=== PATIENT | male | born 1990 | race Two or more races ===

== ENCOUNTER 2017-04-04 07:05 | Emergency (ER) | payer SELFPAY ==
[~2017-04-04] VITALS: Ht 160 cm; Wt 61.5 kg
[2017-04-04] VITALS (8 sets, daily range): BP systolic 101–147; BP diastolic 61–80; PULSE 59–74; RESP 18–20; TEMP 97.9; O2SAT 97–99
[2017-04-04] MEDS ORDERED: ONDANSETRON HCL 4 MG/2 ML VIAL ONE (07:26)
[2017-04-04] MEDS ORDERED: ONDANSETRON HCL 4 MG/2 ML VIAL IV PUSH ONE (07:30)
--- NOTE | 2017-04-04 07:35 | PD ---
HPI Chief Complaint: Dizziness Time Seen by Provider: 07:26 Travel History International Travel<30 days: No Contact w/Intl Traveler<30days: No Traveled to known affect area: No History of Present Illness HPI 26-year-old male came to the emergency room with history of intense dizziness that started all of a sudden while he was at work this morning. Patient seems to be in severe discomfort and has vomited couple times prior to me going to see him. Patient says he has never had this kind of symptom before. He cannot recall of any predisposing factors slight going to a dentist or any roller coaster ride or any extreme movement in recent past. He prefers to keep his eyes shut since he has intense spinning sensation. He is clutching onto the edge of the stretcher. Patient did not fall or hit his head. His colleague from his work is here with him. Patient claims to be a healthy person otherwise. Vital signs are relatively stable. PFSH Past Medical History Narrative Medical List of his past medical, surgical, social and family history was reviewed from the nursing note. Medical History: Denies Significant Hx Diminished Hearing: No Tetanus Vaccination: Unknown Influenza Vaccination: No ?: Not Past Surgical History Surgical History: No Previous Surgery Social History Alcohol Use: No Tobacco Use: No Substance Use: No Allergies-Medications (Allergen,Severity, Reaction): Coded Allergies: No Known Allergies (Unverified , 04/04/17) Comments No known drug allergies. Reported Meds & Prescriptions Reported Meds & Active Scripts Active Xanax (Alprazolam) 0.25 Mg Tab 0.25 Mg PO Q6H PRN Zofran Odt (Ondansetron Odt) 4 Mg Tab 4 Mg SL Q6HR PRN Meclizine (Meclizine HCl) 25 Mg Tab 25 Mg PO TID PRN Narrative Medication List of his home medications reviewed from the nursing note. Review of Systems Except as stated in HPI: all other systems reviewed are Neg Physical Exam Narrative GENERAL: Awake, alert, significant distress SKIN: Focused skin assessment warm/dry. HEAD: Atraumatic. Normocephalic. EYES: Pupils equal and round. No scleral icterus. No injection or drainage. Difficult to assess nystagmus since patient is clenching his eyes shut ENT: No nasal bleeding or discharge. Mucous membranes pink and moist. NECK: Trachea midline. No JVD. CARDIOVASCULAR: Regular rate and rhythm. No murmur appreciated. RESPIRATORY: No accessory muscle use. Clear to auscultation. Breath sounds equal bilaterally. GASTROINTESTINAL: Abdomen soft, non-tender, nondistended. Hepatic and splenic margins not palpable. MUSCULOSKELETAL: No obvious deformities. No clubbing. No cyanosis. No edema. NEUROLOGICAL: Awake and alert. No obvious cranial nerve deficits. Motor grossly within normal limits. Normal speech. PSYCHIATRIC: Appropriate mood and affect; insight and judgment normal. Data Data Last Documented VS Vital Signs Date Time Temp Pulse Resp B/P Pulse Ox O2 Delivery O2 Flow Rate FiO2 04/04/17 14:08 61 18 108/67 98 Room Air 04/04/17 07:09 97.9 Orders Ondansetron Inj (Zofran Inj) (04/04/17 07:26) Ondansetron Inj (Zofran Inj) (04/04/17 07:30) Complete Blood Count With Diff (04/04/17 08:11) Basic Metabolic Panel (Bmp) (04/04/17 08:11) Ct Brain W/O Iv Contrast(Rout) (04/04/17 08:11) Ecg Monitoring (04/04/17 08:11) Iv Access Insert/Monitor (04/04/17 08:11) Oximetry (04/04/17 08:11) Ondansetron Inj (Zofran Inj) (04/04/17 08:15) Sodium Chloride 0.9% Flush (Ns Flush) (04/04/17 08:15) Lorazepam Inj (Ativan Inj) (04/04/17 08:15) Meclizine (Antivert) (04/04/17 08:15) Sodium Chlor 0.9% 1000 Ml Inj (Ns 1000 M (04/04/17 08:15) Mra Brain W/O Contrast (Cow) (04/04/17 ) Mri Brain W/O Contrast (04/04/17 ) Labs Laboratory Tests Test 04/04/17 08:15 White Blood Count 7.8 TH/MM3 Red Blood Count 5.66 MIL/MM3 Hemoglobin 16.7 GM/DL Hematocrit 50.0 % Mean Corpuscular Volume 88.3 FL Mean Corpuscular Hemoglobin 29.5 PG Mean Corpuscular Hemoglobin 33.4 % Concent Red Cell Distribution Width 13.3 % Platelet Count 237 TH/MM3 Mean Platelet Volume 9.6 FL Neutrophils (%) (Auto) 62.2 % Lymphocytes (%) (Auto) 25.9 % Monocytes (%) (Auto) 7.4 % Eosinophils (%) (Auto) 3.5 % Basophils (%) (Auto) 1.0 % Neutrophils # (Auto) 4.9 TH/MM3 Lymphocytes # (Auto) 2.0 TH/MM3 Monocytes # (Auto) 0.6 TH/MM3 Eosinophils # (Auto) 0.3 TH/MM3 Basophils # (Auto) 0.1 TH/MM3 CBC Comment DIFF FINAL Differential Comment Sodium Level 139 MEQ/L Potassium Level 3.7 MEQ/L Chloride Level 104 MEQ/L Carbon Dioxide Level 27.0 MEQ/L Anion Gap 8 MEQ/L Blood Urea Nitrogen 18 MG/DL Creatinine 0.98 MG/DL Estimat Glomerular Filtration 93 ML/MIN Rate Random Glucose 90 MG/DL Calcium Level 9.2 MG/DL MDM Medical Decision Making Medical Screen Exam Complete: Yes Emergency Medical Condition: Yes Medical Record Reviewed: Yes Differential Diagnosis BPV, CVA, intracranial tumor, intracranial bleed Narrative Course 11:01 AM Alyson-Hallpike maneuver was attempted but because patient was trying to keep his eye shut it was difficult to see nystagmus. I still went ahead and tried to do the Padma maneuver with no relief. Patient was given Zofran 2 along with meclizine and IV Ativan. Blood test results are back and within normal limits. Head CT is questioning a small hemorrhage in the left caudate nucleus. Radiologist is recommending an MRI. MRI has been ordered. Waiting for the test to be done and resulted. I reassessed the patient a little bit ago and he seems to have calmed down a little bit. He says he feels little better. The test results and the plan has been relayed to him. 1:14 PM MRI and MRA are within normal limit. Patient was told about the test result. He is currently being ambulated by the medical student. If he ambulates well he'll be discharged home. 1:49 PM patient ambulated and said he was still dizzy but much better than when he first came in. He is comfortable going home. He is calling his friend to take him home. Patient will be discharged home on meclizine. Procedures EKG Prior to Arrival: No Diagnosis Primary Impression: BPV (benign positional vertigo) Qualified Code: H81.10 - BPV (benign positional vertigo), unspecified laterality Admitting Information Admitting Physician Requests: Observation Referrals: Primary Care Physician 2 days Additional Instructions: Please return to the ER if the condition worsens or any other new concerns. Otherwise follow-up with your primary care in couple days. Take the medication as per the prescription direction. He should not be driving until symptoms completely subsided. Med/Other Pt SpecificInfo: Prescription(s) given Scripts Alprazolam (Xanax)0.25 Mg Tab0.25 Mg PO Q6H PRN (ANXIETY) #4 TAB Ref 0 Prov:Barry Trejo MD 04/04/17 Ondansetron Odt (Zofran Odt)4 Mg Tab4 Mg SL Q6HR PRN (Nausea/Vomiting) #10 TAB Ref 0 Prov:Barry Trejo MD 04/04/17 Meclizine 25 Mg Tab25 Mg PO TID PRN (VERTIGO) #21 TAB Ref 0 Prov:Barry Trejo MD 04/04/17 Disposition: 01 DISCHARGE HOME Condition: Stable Barry Trejo MD Apr 04, 2017 07:35
[2017-04-04] MEDS ORDERED: ONDANSETRON HCL 4 MG/2 ML VIAL IVP ONE (08:15)
[2017-04-04] MEDS ORDERED: MECLIZINE HCL 25 MG TAB PO ONE (08:15)
[2017-04-04] MEDS ORDERED: SODIUM CHLOR 0.9% 1000 ML INJ 1,000 ML IV ONE (08:15)
[2017-04-04] MEDS ORDERED: LORazepam 2 MG/ML VIAL IV PUSH ONE (08:15)
[2017-04-04] MEDS ORDERED: SODIUM CHLORIDE 0.9% FLUSH 10 ML FLUSH IVF PRN (08:15)
[2017-04-04 08:43] LABS: AUTOMATED NEUTROPHIL # 4.9 TH/MM3 (1.8-7.7); BASOPHIL # 0.1 TH/MM3 (0-0.2); EOSINOPHIL # 0.3 TH/MM3 (0-0.4); EOSINOPHIL % 3.5 % (0.0-4.0); HEMO FLAGS DIFF FINAL; LYMPH % 25.9 % (9.0-44.0); MEAN CELL VOLUME 88.3 FL (80.0-100.0); MEAN CORPUSCULAR HEMOGLOBIN 29.5 PG (27.0-34.0); MEAN CORPUSCULAR HGB CONC 33.4 % (32.0-36.0); MONO % 7.4 % (0.0-8.0); NEUT % 62.2 % (16.0-70.0); PLATELET COUNT 237 TH/MM3 (150-450); RED BLOOD COUNT 5.66 MIL/MM3 (4.50-5.90); RED CELL DISTRIBUTION WIDTH 13.3 % (11.6-17.2); WHITE BLOOD COUNT 7.8 TH/MM3 (4.0-11.0)
[2017-04-04 09:00] LABS: POTASSIUM 3.7 MEQ/L (3.5-5.1)
--- NOTE | 2017-04-04 09:18 | RADRPT ---
EXAM DATE/TIME: 04/04/2017 08:40 [facility] COMPARISON: No previous studies available for comparison. INDICATIONS : Dizziness, nausea and vomiting since 6 am today. RADIATION DOSE: 56.38 CTDIvol (mGy) MEDICAL HISTORY : None SURGICAL HISTORY : None. ENCOUNTER: Initial ACUITY: 1 day PAIN SCALE: 3/10 LOCATION: TECHNIQUE: Multiple contiguous axial images were obtained of the head. Using automated exposure control and adj ustment of the mA and/or kV according to patient size, radiation dose was kept as low as reasonably a chievable to obtain optimal diagnostic quality images. FINDINGS: There is a faint focus of high density within the expected region of the left basal ganglia which valenzuela ses the possibility of tiny acute intraparenchymal hemorrhage. MRI of the brain is recommended for fu rther evaluation of this questionable finding. No extra-axial bleed is noted. The ventricles, sulci a nd cisterns are unremarkable. No midline shift or mass effect is noted. CONCLUSION: Faint focus of high density within the expected region of the left basal ganglia whic h raises the possibility of tiny acute intraparenchymal hemorrhage. MRI of the brain is recommended f or further evaluation of this questionable finding. Justino oRmo MD on April 04, 2017 at 9:11 Board Certified Radiologist. This report was verified electronically.
--- NOTE | 2017-04-04 12:12 | RADRPT ---
EXAM DATE/TIME: 04/04/2017 11:08 [facility] COMPARISON: No previous studies available for comparison. INDICATIONS : CVA. MEDICAL HISTORY : None. SURGICAL HISTORY : None. ENCOUNTER: Initial ACUITY: 1 day PAIN SCORE: 6/10 LOCATION: Bilateral cranial Please note a normal MRA of the brain does not entirely exclude the possibility of a small aneurysm, nor the possibility of distal intracranial vessel disease. TECHNIQUE: 3D time of flight MRA was performed. Source images, multiplanar STS MIP, and 3D volume MIP reconstru ctions were reviewed. FINDINGS: There is excellent visualization of the major intracranial arteries out to the second-order branch ve ssels. There is no evidence for aneurysm, vessel truncation or stenosis, and no evidence for vascula r malformation. CONCLUSION: 1. Normal examination. Lon Zamarripa MD on April 04, 2017 at 12:08 Board Certified Radiologist. This report was verified electronically.
--- NOTE | 2017-04-04 12:15 | RADRPT ---
EXAM DATE/TIME: 04/04/2017 11:08 [facility] COMPARISON: No previous studies available for comparison. INDICATIONS : CVA. MEDICAL HISTORY : None. SURGICAL HISTORY : None. ENCOUNTER: Initial ACUITY: 1 day PAIN SCORE: 6/10 LOCATION: Bilateral cranial TECHNIQUE: Multiplanar, multisequence MRI of the brain was performed without contrast. FINDINGS: CEREBRUM: The ventricles are normal for age. No evidence of midline shift, mass lesion, hemorrhage or acute in farction. No extraaxial fluid collections are seen. The pituitary gland and suprasellar cistern are normal in configuration. WHITE MATTER: No significant signal abnormalities are seen in the white matter. POSTERIOR FOSSA: The cerebellum and brainstem are intact. The 4th ventricle is midline. The cerebellopontine angle is unremarkable. The cerebellar tonsils are normal in position. DIFFUSION IMAGING: No focal areas of restricted diffusion are seen. No evidence of acute infarction. EXTRACRANIAL: The visualized portions of the orbits and paranasal sinuses are unremarkable. CONCLUSION: Negative MRI of the brain. No findings to indicate acute cortical infarction identified. Lon Zamarripa MD on April 04, 2017 at 12:11 Board Certified Radiologist. This report was verified electronically.
[2017-04-04] MEDS ORDERED: MECL-62 PO (13:50)
[2017-04-04] MEDS ORDERED: ALPR.25 PO (13:51)
[2017-04-04] MEDS ORDERED: ZOFR4TAB3 SL (13:51)
== END 2017-04-04 14:09 | disposition home or self-care (01) ==
LOC: NEPC 07:05
DX: H81.10 Benign paroxysmal vertigo, unspecified ear (principal)
CPT/HCPCS: 70450; 70544; 70551; 80048; 85025; 96361; 96374; 96375; 99285; J2060; J2405; J7030